=== PATIENT | female | born 2000 | race Caucasian/White ===

== ENCOUNTER → 2021-06-27 | Day surgery (SDC) | payer OTHER ==
[~2021-06-27] VITALS: Ht 170.2 cm; Wt 83.9 kg
[~2021-06-27] MED LIST: COLLAGEN PLUS1 EACH PO; FOLIC ACID1 MG PO; KERATIN PO; KETOROLAC TROME10 MG PO; MEGA BIOTIN10000 MCG PO; PRENATAL FORMU1 EACH PO; VITAMIN D310 MC4 PO
[2021-06-27 11:49] LABS: HCT 39.7 % (37.0-47.0); HGB 13.5 g/dl (12.5-16.0); MCH 30.6 pg (25.0-31.0); MPV 10.2 fL (6.0-9.5); RBC 4.41 M/uL (4.20-5.40); RDW 12.5 % (11.5-14.0); WBC 7.6 K/uL (4.0-10.5)
[2021-06-27 12:13] LABS: ALBUMIN 3.8 g/dL (3.4-5.0); BILIRUBIN - TOTAL 0.9 mg/dL (0.2-1.0); BUN/CREAT RATIO (CALC) 11.4 RATIO; CREATININE 0.44 mg/dL (0.51-0.95); GLOBULIN (CALCULATION) 3.4 g/dL; POTASSIUM 3.7 mmol/L (3.5-5.1); TOTAL PROTEIN 7.2 g/dL (6.4-8.2)
== END | disposition home or self-care (01) ==
LOC: FAS 10:50
PROVIDERS: Specialist
DX: O02.1 Missed abortion (principal); Z20.822 Contact with and (suspected) exposure to COVID-19
CPT/HCPCS: 36415; 80053; 86850; 86900; 86901; J0690; J1100; J1170; J1885; J2250; J2405; J2704; J3010; J7120; U0002

== ENCOUNTER → 2021-10-01 | Day surgery (SDC) | payer OTHER ==
[~2021-10-01] VITALS: Ht 170.2 cm; Wt 89.3 kg
[2021-10-01 10:28] LABS: HCT 39.7 % (37.0-47.0); HGB 13.7 g/dl (12.5-16.0); MCH 30.9 pg (25.0-31.0); MCHC 34.5 g/dL (32.0-36.0); MCV 89.6 fL (78.0-100.0); MPV 10.3 fL (6.0-9.5); RBC 4.43 M/uL (4.20-5.40); RDW 12.1 % (11.5-14.0); WBC 9.6 K/uL (4.0-10.5)
== END | disposition home or self-care (01) ==
LOC: FAS 09:40
PROVIDERS: Specialist
DX: O02.1 Missed abortion (principal); J30.1 Allergic rhinitis due to pollen; Z20.822 Contact with and (suspected) exposure to COVID-19; Z97.5 Presence of (intrauterine) contraceptive device
CPT/HCPCS: 36415; 86850; 86900; 86901; J0690; J1100; J1885; J2250; J2405; J2704; J3010; J7050; J7120; U0002

== ENCOUNTER 2021-11-16 02:42 | Emergency (ER) | payer OTHER ==
[2021-11-16 04:15] LABS: CORONAVIRUS 2019 SARS-COV-2 NEGATIVE (NEGATIVE); INFLUENZA A NAA NEGATIVE (NEGATIVE)
[2021-11-16 04:26] LABS: BILIRUBIN NEGATIVE (NEGATIVE); BLOOD 2+ Ery/uL (NEGATIVE); CLARITY CLEAR (CLEAR); COLOR YELLOW (YELLOW); GLUCOSE (U) NORMAL (NORMAL); LEUKOCYTES NEGATIVE Leu/uL (NEGATIVE); NITRITE NEGATIVE (NEGATIVE); PROTEIN NEGATIVE (NEGATIVE); UROBILINOGEN 0.2 mg/dL (0.2-1.0)
[2021-11-16 04:34] LABS: AMORPHOUS URATES CRYSTALS MODERATE; URINARY WBC RARE
[2021-11-16] MEDS ORDERED: FIORICET1 EACH PO (04:48)
[2021-11-16] MEDS ORDERED: ONDANSETRON ODT4 MG SL (04:48)
[2021-11-16] MEDS ORDERED: IBUPROFEN800 MG PO (04:48)
[2021-11-16 04:56] LABS: BASOPHIL 0.3 % (0-2); EOSINOPHIL 0.9 % (0-5); HGB 13.6 g/dl (12.5-16.0); LYMPHOCYTE 12.5 % (15-48); MCH 30.2 pg (25.0-31.0); MCV 88.9 fL (78.0-100.0); MONOCYTE 8.8 % (0-12); MPV 10.1 fL (6.0-9.5); NEUTROPHIL 77.2 % (41-80); NRBC 0; PLT 270 K/uL (150-400); RDW 11.9 % (11.5-14.0); WBC 6.8 K/uL (4.0-10.5)
[2021-11-16 05:07] LABS: BUN/CREAT RATIO (CALC) 14.7 RATIO; CREATININE 0.68 mg/dL (0.51-0.95); POTASSIUM 3.6 mmol/L (3.5-5.1)
== END 2021-11-16 05:19 | disposition home or self-care (01) ==
LOC: FER 02:42
PROVIDERS: Emergency Medicine Emergency Medical Services
DX: B34.9 Viral infection, unspecified (principal); Z20.822 Contact with and (suspected) exposure to COVID-19
CPT/HCPCS: 36415; 71046; 80048; 81001; 85025; 94640; 94664; J1100; J1885; J2405; J7030; U0002